=== PATIENT | male | born 1985 | race Caucasian/White ===

== ENCOUNTER 2021-09-24 12:49 | Emergency (ER) | payer OTHER, SELFPAY ==
[2021-09-24 12:56] VITALS: BP 132/78; PULSE 110; RESP 20; TEMP 36.5; O2SAT 98
--- NOTE | 2021-09-24 13:05 | ED.URI ---
HPI - URI/Sore Throat General Chief Complaint: Upper Respiratory Infection Stated Complaint: Cough Time Seen by Provider: 09/24/21 13:00 Source: patient Mode of arrival: ambulatory Limitations: no limitations History of Present Illness HPI Narrative: Mr. Byrd is a 36-year-old male patient presenting to the clinic today with complaints of cough and chest tightness. He reports that he is having some chest discomfort with coughing however the cough is nonproductive. He denies being a smoker or any history of asthma or COPD. Has runny nose and congestion. He denies any fever or chills. He has taken a COVID test this morning and it was negative MD elicited complaint: cough and nasal congestion Related Data Home Medications Medication Instructions Recorded Confirmed atorvastatin 10 mg tablet 10 mg PO DAILY 12/05/20 09/24/21 famotidine 20 mg PO DAILY 09/24/21 09/24/21 lisinopril-hydrochlorothiazide 1 tablet PO DAILY 09/24/21 09/24/21 metformin 500 mg PO BID 09/24/21 09/24/21 Allergies Allergy/AdvReac Type Severity Reaction Status Date / Time acetaminophen [From Vicodin] Allergy GI Upset Verified 09/24/21 13:10 hydrocodone [From Vicodin] Allergy GI Upset Verified 09/24/21 13:10 Review of Systems Review of Systems: Pertinent positives per HPI. Patient denies any fever, chills, rash, headache, visual changes, dizziness, shortness of breath, chest pain, palpitations, nausea, vomiting, diarrhea, constipation, abdominal pain, or any urinary issues. [facility] Past Medical History Medical History (Updated 09/24/21 @ 13:12 by [place] APRN) Hyperlipidemia Surgical History Surgical History History of tonsillectomy Comments At the time of my signature, I reviewed and agree with the nursing past medical, surgical, social, and family history. There is no relevant family history pertinent to the patient complaint. Exam Narrative: General: Well-developed, obese, in no apparent distress Head: Normocephalic, atraumatic Eyes: Pupils equally round and reactive to light bilaterally, EOM intact, sclera and conjunctive clear, no discharge, lids normal Ears: TMs intact and clear, ear canals clear, no drainage, grossly hearing normal. Nose: Nares patent, clear nasal discharge, no inflammation, no sinus tenderness. Mouth: Oral pharynx without lesions or masses, good dentition, MMM. Neck: Supple, trachea midline, no enlargement of anterior or posterior cervical nodes, no thyroid masses or goiter palpable. Cardio: Regular rate and rhythm, s1 and s2 normal, no murmur appreciated. Resp: Clear to auscultation bilaterally, no rhonchi, rales, wheezing or rubs Course Course Emergency Course: Portions of this record may have been created with voice recognition software. Level of Care: Express Care Visit Vital Signs Vital signs: Vital Signs Temperature 36.5 C 09/24/21 12:56 Pulse Rate 110 H 09/24/21 12:56 Respiratory Rate 20 09/24/21 12:56 Blood Pressure 132/78 09/24/21 12:56 Pulse Oximetry 98 09/24/21 12:56 Temperature 36.5 C 09/24/21 12:56 Pulse Rate 110 H 09/24/21 12:56 Respiratory Rate 20 09/24/21 12:56 Blood Pressure 132/78 09/24/21 12:56 Pulse Oximetry 98 09/24/21 12:56 Vital signs reviewed MDM - URI/Sore Throat MDM Narrative Medical decision making narrative: At the time of assessment patient is resting comfortably on the exam table nonlabored breathing. Having some chest discomfort due to cough. Lung sounds are clear at this time has runny nose with postnasal drip. I suspect the patient has allergic rhinitis that is causing his cough. I will send a prescription in for benzonatate as well as an albuterol inhaler for any cough shortness of breath or wheezing. Patient voiced understanding of discharge instructions and agrees with treatment plan. Differential Diagnosis Differential diagnosis: Likely sinusitis, viral
== END 2021-09-24 13:17 | disposition home or self-care (01) ==
PROVIDERS: Emergency Provider Nurse Practitioner Family
DX: J30.9 Allergic rhinitis, unspecified (principal); E78.5 Hyperlipidemia, unspecified
CPT/HCPCS: 99213; G0463

== ENCOUNTER 2024-04-06 17:12 | Emergency (ER) | payer OTHER, SELFPAY ==
--- NOTE | ~2024-04-06 | XR_ITS ---
EXAMINATION: XR foot LT 2V, XR ankle LT min 3V DATE: 04/06/2024 17:56 INDICATION: Left foot and ankle swelling post injury TECHNIQUE: 1. Anteroposterior, mortise, additional oblique and lateral view of the left ankle were obtained. 2. Dorsoplantar, two oblique and lateral views of the left foot were obtained. COMPARISON: None. FINDINGS: Alignment of the foot and ankle is normal. No fracture. 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 Small Achilles calcaneal spur. No ankle joint effusion. Soft tissue swelling about the lateral mall eolus. IMPRESSION: 1. Mild degenerative skeletal changes in the left foot. No acute osseous abnormality. Reviewed, dictated and finalized at location A. IT PRODUCT ANALYST IMPRESSION: 1. Mild degenerative skeletal changes in the left foot. No acute osseous abnorm ality.
[2024-04-06 17:34] VITALS: BP 121/84; PULSE 91; RESP 18; TEMP 36.7; O2SAT 100
--- NOTE | 2024-04-06 17:36 | ED.LOWEXIN ---
HPI - Extremity Injury (Lower) General Chief Complaint: Extremity Injury, Lower Stated Complaint: Lft Foot Injury Time Seen by Provider: 04/06/24 17:36 Source: patient, RN notes reviewed and old records reviewed Mode of arrival: ambulatory Limitations: no limitations History of Present Illness HPI Narrative: 38 year old male accompanied by presents to express care and placed in wheelchair on arrival with complaints of injury to his left outer ankle since fall prior to arrival which occurred at his home in the yard. Patient reports that he stepped off the porch and into a hole with his left foot and feel. Patient reports that his ankle rolled inward and he felt a pop and his ankle has been swollen and painful since. Patient has iced his left ankle and has taken Ibuprofen prior to arrival in clinicf MD complaint: ankle injury and foot injury (left) Onset (ago): hour(s) (prior to arrival) Injury: Left: ankle and foot Type of Injury: other (rolled ankle inward) Place: home and street/outdoors Severity scale (1-10): 5 Treatments prior to arrival: cold therapy and NSAIDS Related Data Home Medications Medication Instructions Recorded Confirmed atorvastatin 20 mg tablet 20 mg PO DAILY 04/06/24 04/06/24 bupropion HCl 150 mg 24 hr tablet, 150 mg PO DAILY 04/06/24 04/06/24 extended release lisinopril 10 mg tablet 10 mg PO DAILY 04/06/24 04/06/24 multivit with minerals-iron 18 1 tablet PO DAILY 04/06/24 04/06/24 mg-folic ac 400 mcg-vit K 25 mcg tablet (Adults Multivitamin) semaglutide 1 mg/dose (4 mg/3 mL) See Rx Instructions .Route .COMPLEX 04/06/24 04/06/24 subcutaneous pen injector (Ozempic) Allergies Allergy/AdvReac Type Severity Reaction Status Date / Time acetaminophen [From Vicodin] Allergy GI Upset Verified 04/06/24 17:44 hydrocodone [From Vicodin] Allergy GI Upset Verified 04/06/24 17:44 Review of Systems Review of Systems: CONSTITUTIONAL: Denies fever, chills, or sweats. EYES: Denies visual changes, redness, or discharge. ENT: Denies rhinorrhea, congestion, sore throat, or otalgia. CARDIOVASCULAR: Denies chest pain, palpitations, or edema. RESPIRATORY: Denies cough or dyspnea. GASTROINTESTINAL: Denies abdominal pain, nausea, vomiting, or diarrhea. GENITOURINARY: Denies dysuria or hematuria. SKIN: Denies rash or itching. MUSCULOSKELETAL: Denies back pain, positive for pain to left foot and left ankle from injury with lateral ankle swelling, or myalgia. NEUROLOGIC: Denies headache, numbness, or weakness. PSYCHIATRIC: Reports history of anxiety or depression. All systems reviewed & are unremarkable except as noted in HPI and below PMFSH Past Medical History Medical History (Updated 04/08/24 @ 19:24 by Maryam Kunz NP) Anxiety Diabetes Hyperlipidemia Hypertension Tear of meniscus of knee Surgical History Surgical History History of tonsillectomy Social History Social History (Updated 04/08/24 @ 19:22 by Maryam Kunz NP) Smoking status: Never smoker Alcohol intake: current Alcohol use details: social Substance use type: does not use Living arrangements: with family Gender identity (if verbalized by the patient): Male Comments At time of signature, agree with nursing past medical, surgical, social and family history. There is no relevant family history pertinent to the presenting complaint Exam Narrative: GENERAL: Well-appearing, well-nourished, and in no acute distress. HEAD: Normocephalic, atraumatic. EYES: PERRLA and EOMI. ENT: Nares clear, no rhinorrhea or epistaxis. Mucous membranes moist.TM's normal throat pink tonsils absent NECK: Supple. no lymphadenopathy CHEST: Clear to auscultation. No respiratory distress.SAO2 100% on room air HEART: Regular rate and rhythm. No murmur heard. Normal peripheral pulses. ABDOMEN: Soft, nontender, nondistended, normal active bowel sounds. EXTREMITIES: Normal range of motion. No edema. SKIN: Warm, dry, no rash.Exception noted to left ankle edema with pain to left ankle and foot, palpable left pedal pulse foot warm with adequate sensation with some limited ankle movement due to pain. NEURO: No focal deficits. Alert and oriented x3. Course Course Emergency Course: Patient is aware of diagnosis, understands and agrees to treatment plan.? Anticipatory guidance given.? Patient agrees to follow-up as directed and is aware of reasons to seek care at the emergency department. Portions of this record may have been created with voice recognition software Level of Care: Express Care Visit Vital Signs Vital signs: Vital Signs Temperature 36.7 C 04/06/24 17:34 Pulse Rate 91 04/06/24 17:34 Respiratory Rate 18 04/06/24 17:34 Blood Pressure 121/84 04/06/24 17:34 Pulse Oximetry 100 04/06/24 17:34 Oxygen Delivery Room Air 04/06/24 17:34 Temperature 36.7 C 04/06/24 17:34 Pulse Rate 91 04/06/24 17:34 Respiratory Rate 18 04/06/24 17:34 Blood Pressure 121/84 04/06/24 17:34 Pulse Oximetry 100 04/06/24 17:34 Oxygen Delivery Room Air 04/06/24 17:34 Reviewed MDM - Extremity Injury (Lower) Differential Diagnosis Differential diagnosis: Likely ankle sprain and strain, ankle fracture and other (left foot fracture, pain left foot and ankle) Medical Records Attestation: I reviewed the patient's medical records. Imaging Data My impression: NO FRACTURE, no ankle joint effusion,mild degenerative changes in the left foot with soft tissue swelling in lateral left ankle Radiologist's impression: [facility] [place] [facility] [employer] [place] [id number] XRay Report Signed Patient: Josse Byrd : 1985 MR#: [id number] Age: 38 Acct:[id number] Loc: [facility] ADM Date: 04/06/24Attending Dr: Ordering Physician: Maryam Kunz APRN Date of Service: 04/06/24 Procedure(s): XR ankle LT min 3V; XR foot LT 2V Accession Number(s): [id number]; [id number] cc: Maryam Kunz APRN; UNKNOWN,DOCTOR~ EXAMINATION: XR foot LT 2V, XR ankle LT min 3V DATE: 04/06/2024 17:56 INDICATION: Left foot and ankle swelling post injury TECHNIQUE: 1. Anteroposterior, mortise, additional oblique and lateral view of the left ankle were obtained. 2. Dorsoplantar, two oblique and lateral views of the left foot were obtained. COMPARISON: None. FINDINGS: Alignment of the foot and ankle is normal. No fracture. 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 Small Achilles calcaneal spur. No ankle joint effusion. Soft tissue swelling about the lateral malleolus. IMPRESSION: 1. Mild degenerative skeletal changes in the left foot. No acute osseous abnormality. Reviewed, dictated and finalized at location A. [employer] PRACTICE MANAGER Dictated By: Luca Sexton MD 04/06/24 1811 Signed By: <Electronically signed by Luca Sexton MD in OV> Critical Care Time Critical Care Time Critical Care Time: No Discharge Plan Discharge Clinical Impression: Foot pain, left Left ankle sprain Qualifiers: Encounter type: initial encounter Involved ligament of ankle: unspecified ligament Qualified Code(s): S93.402A - Sprain of unspecified ligament of left ankle, initial encounter Patient Disposition: Home, Self-Care Condition: Stable Instructions: Antibiotic Form, Ankle Sprain (ED) Additional Instructions: Elastic wrap or orthopedic splint as directed for comfort for the next 5-7 days Avoid over exertion on left foot ankle Tylenol for lesser pain command Arthritis Strength Tylenol 650 tablet 1 every 8 hours pain control Ibuprofen regularly for the next 2-3 days for the inflammation 600 mg 3 times daily with food Follow-up with orthopedic surgeon if any further problems or concerns Follow-up with PCP if further problems or concerns Ice to the area 20-30 minutes 4-6 times a day Elevate above heart If your symptoms persist, change or worsen significantly before you can contact your personal physician then please, without delay, go to the emergency department for further evaluation. Follow-up with PCP in 7-10 days or sooner if needed Prescriptions: No Action Ozempic 1 mg/dose (4 mg/3 mL) pen injector See Rx Instructions .ROUTE .COMPLEX Rx Instructions: as prescribed atorvastatin 20 mg tablet 20 mg PO DAILY lisinopril 10 mg tablet 10 mg PO DAILY bupropion HCl 150 mg tablet extended release 24 hr 150 mg PO DAILY Adults Multivitamin 18 mg iron-400 mcg-25 mcg Tablet 1 tablet PO DAILY Follow-up/Referrals: UNKNOWN,DOCTOR [Primary Care Provider] - Time of Disposition: 18:40 Quality Rashmi Coma Scale Eyes: Open Verbal: Oriented and Alert Motor: Follows Commands [place] Coma Total Score: 15
== END 2024-04-06 18:40 | disposition home or self-care (01) ==
PROVIDERS: Emergency Provider Registered Nurse
DX: M79.672 Pain in left foot (principal); S93.402A Sprain of unspecified ligament of left ankle, initial encounter; W19.XXXA Unspecified fall, initial encounter; E11.9 Type 2 diabetes mellitus without complications; I10 Essential (primary) hypertension; E78.5 Hyperlipidemia, unspecified; F41.9 Anxiety disorder, unspecified
CPT/HCPCS: 73610; 73620; 99213; G0463